=== PATIENT | male | born 1965 | race Caucasian/White ===

== ENCOUNTER 2018-02-24 13:38 | Inpatient (IN) | payer OTHER ==
[~2018-02-24] VITALS: Ht 190.5 cm; Wt 102.3 kg
[2018-02-24] VITALS (8 sets, daily range): BP systolic 108–148; BP diastolic 48–78; BMI 28.1
--- NOTE | ~2018-02-24 | DS ---
PATIENT:VIRGINIA ROY :67 MEDICAL RECORD: [id number] DISCHARGE SUMMARY ADMISSION DATE: 02/24/18 DISCHARGE DATE: 02/26/18 PRINCIPAL DIAGNOSIS: Acute gangrenous cholecystitis. OTHER DIAGNOSES: Include leukocytosis, nausea, vomiting, history of gastric bypass, cardiomegaly, arthritis. PROCEDURE: Laparoscopic cholecystectomy. HOSPITAL COURSE: The patient was admitted through the Emergency Room. [place] He underwent the above operative procedure. Postoperatively, he was having some fever. He is being dismissed home on Colace, Dilaudid, Levaquin and Flagyl. As he has run some fever and is at an increased risk for postoperative complications such as an abscess, I have asked him to stay in town for several days and to be seen in the office on Wednesday. They have agreed to this. Discharge instructions were given to the patient verbally by me. TRANSINT:[id number] Voice Confirmation ID: [id number] DOCUMENT ID: [id number] GREA BIANCHI MD at 1007 CC: [id number] DICTATION DATE: 02/26/18 1401 CONDUCTOR FREIGHT: 02/26/18 1631 DIS IN 02/26/18 [id number] [place] [address]
--- NOTE | ~2018-02-24 | OP ---
PATIENT NAME: VIRGINIA ROY MEDICAL RECORD: [id number] :67 LOCATION:D.M3 D.1212 ADMISSION DATE:02/24/18 SURGEON: DANA GONG MD DATE OF OPERATION: 02/25/2018 PREOPERATIVE DIAGNOSES: 1. Acute cholecystitis. 2. Cardiomegaly. 3. History of gastric bypass. POSTOPERATIVE DIAGNOSES: 1. Acute cholecystitis. 2. Cardiomegaly. 3. History of gastric bypass. PROCEDURE: Laparoscopic cholecystectomy. SURGEON: Dana Gong MD REPORT OF PROCEDURE: The patient's abdomen was prepped and draped in sterile fashion. A cutdown was made on the superior aspect of the umbilicus. Vicryls #0 were placed on the fascia bilaterally and the fascia was incised with #15 blade. Immediately, I could see there was some murky-appearing fluid in the abdominal cavity with no odor. We inserted a 12-mm Nandini port and the abdomen was insufflated. Under direct visualization, a 5-mm trocar was placed in the epigastrium and two more 5-mm trocars were placed in the right subcostal region. There were lot of fatty adhesions of the omentum to the right upper quadrant of the abdomen and these were teased down with blunt dissection. Eventually, we were able to dissect this off of very inflamed and gangrenous gallbladder. There was no sign of acute perforation present. The gallbladder was elevated, and due to its rigidity, we accessed the gallbladder using an Endo needle and removed a large amount of bilious fluid. This made the gallbladder much easier to grasp and manipulate. We eventually were able to dissect down and find the cystic artery and cystic duct. These were clipped proximally and distally and ligated in standard fashion. The gallbladder was then taken off the liver bed using electrocautery and placed into an Endo Catch bag. Any bleeding from the liver bed was then treated with electrocautery. We then irrigated out the right upper quadrant and inspected around this area to assure there was no sign of any other bile leakage or injury. We then irrigated out the pelvis and abdomen to get rid of this murky-appearing fluid that did not appear to be frankly purulent, but was more of an inflammatory-type fluid. We eventually got the fluid irrigated out and up to where the fluid return was clear. We inspected the patient's appendix and it appeared to be normal with no signs of acute inflammation. The colon was distended, but there were no signs of any inflammatory changes or perforation present on preop CT scan or intraoperatively. At this point, the ports and insufflation were then removed and the gallbladder was taken out through the umbilicus. The umbilical fascia was closed with interrupted #0 Vicryls times 4. The wounds were then irrigated out with normal saline and infused with 10 mL of 0.25% Marcaine with epinephrine. The skin incisions were all closed with subcutaneous 5-0 Monocryl and dressed appropriately. COMPLICATIONS: None. CONDITION: Stable. OPERATIVE REPORT [id number] VIRGINIA ROY ANESTHESIA: General endotracheal and local. BLOOD LOSS: 30 mL. TRANSINT:[id number] Voice Confirmation ID: [id number] DOCUMENT ID: [id number] DANA GONG MD at 1110 CC: [id number] DICTATION DATE: 02/25/181427 ABSTRACT MANAGER: 02/25/18 1448 DIS IN 02/26/18 [id number] [place] [address]
[2018-02-24 14:37] LABS: BASOPHILS 0.1 % (0-2); EOSINOPHILS 0.1 % (0-7); HEMOGLOBIN 13.6 g/dL (13.5-17.5); IMMATURE GRANULOCYTES 0.1 % (0-5); LYMPHOCYTES 5.7 % (15-50); MCH 30.9 pg (26.0-34.0); MCV 90.9 fL (80.0-100.0); MEAN PLATELET VOLUME 9.9 fL (7.4-10.4); MONOCYTES 11.7 % (2-11); NEUTROPHILS 82.3 % (40-80); PLATELET COUNT 267 10x3/uL (130-400); RDW 12.5 % (11.5-14.5); WBC 14.2 10x3/uL (4.8-10.8)
[2018-02-24 14:54] LABS: ALBUMIN 3.8 g/dL (3.4-5.0); ALKALINE PHOSPHATASE 104 U/L (46-116); ALT (SGPT) 31 U/L (10-68); AMYLASE - SERUM 49 U/L (25-115); BILIRUBIN - TOTAL 0.71 mg/dL (0.2-1.3); CALC OSMOLALITY 281 mosm/kg (275-300); CALCIUM 8.9 mg/dL (8.5-10.1); CHLORIDE - SERUM 102 mmol/L (98-107); GLUCOSE 140 mg/dL (74-106); LIPASE 148 U/L (73-393); POTASSIUM - SERUM 3.8 mmol/L (3.5-5.1); PROTEIN - SERUM 7.5 g/dL (6.4-8.2); SODIUM 139 mmol/L (136-145); UREA NITROGEN 17 mg/dL (7-18); eGFR NON AFRICAN AMERICAN 84 mL/min (90-120)
[2018-02-24 16:20] LABS: APPEARANCE CLEAR (CLEAR); BILIRUBIN NEGATIVE (NEGATIVE); COLOR DK YELLOW (YELLOW); GLUCOSE NEGATIVE (NEGATIVE); KETONE SMALL mg/dL (NEGATIVE); NITRITE NEGATIVE (NEGATIVE); PROTEIN NEGATIVE (NEGATIVE); UROBILINOGEN NORMAL (NORMAL)
[2018-02-25] MEDS ORDERED: MULTIPLE VITAMI1 TA1 PO (01:51)
[2018-02-25] MEDS ORDERED: OMEPRAZOLE40 MG PO (01:52)
[2018-02-25 06:10] VITALS: BP 102/56
[2018-02-25 07:34] VITALS: BP 106/60
[2018-02-25 08:44] VITALS: Ht 190.5 cm; Wt 102.3 kg
[2018-02-26 04:00] VITALS: BP 106/55
[2018-02-26 06:41] LABS: BASOPHILS 0.2 % (0-2); EOSINOPHILS 0.1 % (0-7); HEMATOCRIT 33.8 % (42.0-54.0); HEMOGLOBIN 11.3 g/dL (13.5-17.5); IMMATURE GRANULOCYTES 0.3 % (0-5); LYMPHOCYTES 6.8 % (15-50); MCH 30.5 pg (26.0-34.0); MCHC 33.4 g/dL (31.0-37.0); MCV 91.1 fL (80.0-100.0); MEAN PLATELET VOLUME 9.8 fL (7.4-10.4); MONOCYTES 14.5 % (2-11); NEUTROPHILS 78.1 % (40-80); RBC 3.71 10x6/uL (4.20-6.10); RDW 13.1 % (11.5-14.5); WBC 12.3 10x3/uL (4.8-10.8)
[2018-02-26 06:47] LABS: PLATELET COUNT 157 10x3/uL (130-400)
[2018-02-26 07:11] LABS: CALC OSMOLALITY 270 mosm/kg (275-300); CALCIUM 8.1 mg/dL (8.5-10.1); CARBON DIOXIDE 29.5 mmol/L (21.0-32.0); CHLORIDE - SERUM 101 mmol/L (98-107); CREATININE - SERUM 1.1 mg/dL (0.6-1.3); GLUCOSE 109 mg/dL (74-106); POTASSIUM - SERUM 3.7 mmol/L (3.5-5.1); SODIUM 134 mmol/L (136-145); UREA NITROGEN 18 mg/dL (7-18); eGFR NON AFRICAN AMERICAN 75 mL/min (90-120)
[2018-02-26 07:50] VITALS: BP 120/62
[2018-02-26 12:19] VITALS: BP 105/64
[2018-02-26] MEDS ORDERED: DILAUDID2 MG PO (14:12)
[2018-02-26] MEDS ORDERED: LEVAQUIN750 MG PO (14:13)
[2018-02-26] MEDS ORDERED: FLAGYL500 MG PO (14:14)
[2018-02-26] MEDS ORDERED: COLACE100 MG PO (14:14)
== END 2018-02-26 14:55 | disposition home or self-care (01) | DRG 419 ==
LOC: D.ER 13:38 → D.M3 19:27 → D.EDHOLD 19:27 → D.M3 19:46
PROVIDERS: Family Medicine; Surgery
PROC: 0FT44ZZ Resection of Gallbladder, Percutaneous Endoscopic Approach (ICD-10-PCS; principal; 2018-02-25 10:00)
DX: K81.0 Acute cholecystitis (principal); I51.7 Cardiomegaly